=== PATIENT | male | born 1975 | race African-American/Black ===

== ENCOUNTER 2021-11-25 20:56 | Emergency (ER) | payer MEDICAID ==
[~2021-11-25] VITALS: Ht 188 cm; Wt 96.2 kg
--- NOTE | 2021-11-25 21:31 | NUR ---
Pt is refusing blood draw. Dr lee notified.
--- NOTE | 2021-11-25 21:45 | NUR ---
Patient does not wish to proceed with medical care recommended by Dr. Gomez. Patient given information related to possible complications, up to and including , which could occur as a result of leaving the hospital at this time. Patient verbalizes understanding of risks involved due to leaving against medical advice. Patient refused to sign AMA form.
[2021-11-25 21:55] VITALS: BP 137/78
== END 2021-11-25 21:56 | disposition left against medical advice (07) ==
LOC: ER 20:56
DX: M79.652 Pain in left thigh (principal); M79.602 Pain in left arm; M79.601 Pain in right arm; Z91.012 Allergy to eggs; Z53.29 Procedure and treatment not carried out because of patient's decision for other reasons
CPT/HCPCS: 93005; A4663